=== PATIENT | male | born 1960 | race Caucasian/White ===

== ENCOUNTER 2016-08-04 18:30 | Emergency (ER) | payer OTHER ==
[~2016-08-04] VITALS: Ht 188 cm; Wt 111.4 kg
[~2016-08-04 18:30] MED LIST: PRINZIDE 12.5 M1 TAB PO; ZITHROMAX Z PA250 MG PO
[2016-08-04 18:35] VITALS: TEMP 97.5
[2016-08-04] MEDS ORDERED: ZYLOPRIM 300MG300 MG PO (18:40)
[2016-08-04] MEDS ORDERED: PRINZIDE 12.5 M1 TAB PO (18:40)
[2016-08-04 19:31] LABS: BASO # 0.1 (0.0-0.2); BASO % 0.7 % (0.0-2.0); EOS # 0.1 (0.0-0.7); EOS % 0.6 % (0-4.0); GRAN # 10.8 (1.4-6.5); GRAN % 75.8 % (42.2-75.2); HEMATOCRIT 47.4 % (42.0-52.0); HEMOGLOBIN 16.3 g/dl (13.5-18.0); LYMPH # 2.2 (1.2-3.4); LYMPH % 15.3 % (20.0-51.0); MEAN CELL VOLUME 88 fl (80.0-100.0); MEAN CORPUSCULAR HEMOGLOBIN 30 pg (27.0-31.0); MEAN CORPUSCULAR HGB CONC 34 g/dl (33.0-37.0); MEAN PLATELET VOLUME 10.6 fl (7.4-10.4); MONO % 7.2 % (1.7-9.3); PLATELET COUNT 262 K/mm3 (130-400); RED BLOOD COUNT 5.36 M/mm3 (4.20-5.60); REDCELL DISTRIBUTION WIDTH-CV 13.1 % (11.5-14.5); WHITE BLOOD COUNT 14.3 K/mm3 (4.8-10.8)
[2016-08-04 19:44] LABS: ADJUSTED CALCIUM 9.3 mg/dL (8.4-10.2); ALBUMIN 5.1 gm/dL (3.5-5.0); BILIRUBIN,TOTAL 1.1 mg/dL (0.0-1.0); CALCIUM 10.2 mg/dL (8.4-10.2); CREATININE, serum 3.85 mg/dL (0.66-1.25); POTASSIUM 3.9 mmol/L (3.4-5.0); TOTAL PROTEIN 8.7 gm/dL (6.4-8.2)
[2016-08-04 22:12] VITALS: BP 107/82; PULSE 79
== END 2016-08-04 22:21 | disposition home or self-care (01) ==
LOC: COL.ER 18:30
PROVIDERS: Family Medicine
DX: M62.82 Rhabdomyolysis (principal); N28.9 Disorder of kidney and ureter, unspecified; I10 Essential (primary) hypertension; R10.84 Generalized abdominal pain; R11.2 Nausea with vomiting, unspecified
CPT/HCPCS: J2405; J7030

== ENCOUNTER 2016-08-05 11:20 | Outpatient (CLI) | payer OTHER ==
[~2016-08-05] VITALS: Ht 188 cm; Wt 111.0 kg
[2016-08-05 10:15] VITALS: BP 113/47; PULSE 70; TEMP 97.6
[~2016-08-05 11:20] MED LIST changes: +ZYLOPRIM 300MG300 MG PO
[2016-08-05 13:08] LABS: CREATININE, serum 2.9 mg/dL (0.66-1.25)
== END 2016-08-05 13:05 | disposition home or self-care (01) ==
LOC: EUO 11:20
PROVIDERS: Family Medicine
DX: M62.82 Rhabdomyolysis (principal); N28.9 Disorder of kidney and ureter, unspecified
CPT/HCPCS: J7030